=== PATIENT | male | born 1965 | race Caucasian/White ===

== ENCOUNTER 2017-07-24 10:22 | Day surgery (SDC) | payer BC ==
[2017-07-23 12:43] VITALS: BMI 26.5
[2017-07-24 12:50] VITALS: TEMP 98
[2017-07-24 13:02] VITALS: BP 141/83; PULSE 58
--- NOTE | 2017-07-29 13:55 | PATH ---
Surgical Pathology Report Patient Name: KARLA DONOVAN [facility]. Rec. #: [id number] /Age/Gender: 1965 (Age: 52) / M Account: [id number] Location: Taken: 07/24/2017 Received: 07/24/2017 Reported: 07/29/2017 Physicians: Lavern Laurent M.D. Specimen(s) Received BX CECUM Clinical History Rule out colon cancer Polyps Final Diagnosis CECUM, POLYPS, POLYPECTOMY: TUBULAR ADENOMA (S). HYPERPLASTIC POLYP(S). Electronically Signed Marina Spangler M.D. Gross Description Received in formalin, labeled "cecum" are 6 haynes, irregular portions of soft tissue averaging 0.2 cm. in greatest dimension. The specimens are submitted in toto in one cassette. 07/25/201707/25/2017
== END 2017-07-24 13:00 | disposition home or self-care (01) ==
LOC: FASU-ENDO 10:22
PROVIDERS: ATTEND Internal Medicine Gastroenterology
PROC: 0DBH8ZX Excision of Cecum, Via Natural or Artificial Opening Endoscopic, Diagnostic (ICD-10-PCS; principal; 2017-07-24 11:52)
PROC: 0DBL8ZX Excision of Transverse Colon, Via Natural or Artificial Opening Endoscopic, Diagnostic (ICD-10-PCS; 2017-07-24 11:52)
DX: Z86.010 Personal history of colon polyps (principal); Z80.0 Family history of malignant neoplasm of digestive organs; D12.0 Benign neoplasm of cecum; K63.5 Polyp of colon; K64.1 Second degree hemorrhoids
CPT/HCPCS: 88305-TC